=== PATIENT | male | born 1945 | race Caucasian/White ===

== ENCOUNTER 2016-12-23 02:32 | Day surgery (SDC) | payer OTHER ==
[~2016-12-23] VITALS: Ht 177.8 cm; Wt 73.0 kg
[~2016-12-23 02:32] MED LIST: ASPIR 8181 M1 PO; ASPIRIN325 MG PO; C 500 MG TIMED500 MG PO; CYANOCOBALAM1000 MCG PO; DAILY VALUE1 EACH PO; HYDROCHLOROTH12.5 M3 PO; LIPITOR80 MG PO; LOMOTIL TABLET1 EACH PO; METOCLOPRAMIDE10 MG PO; NAPROSYN500 MG PO; NEXIUM20 MG PO; NITROGLYCERIN0.4 MG SL; NITROSTAT0.4 MG SL; NORVASC5 MG PO; TOPROL XL50 MG PO; ZETIA10 MG PO
[2016-12-23 02:53] LABS: BASOPHIL COUNT 0.1 K/uL (0-0.1); EOSINOPHIL (%) 1.1 % (0-5); EOSINOPHIL COUNT 0.2 K/uL (0-0.3); HEMATOCRIT 37.5 % (38.0-50.0); IMMATURE GRANULOCYTE (%) 0.5 % (0.0-0.7); IMMATURE GRANULOCYTE COUNT 0.1 K/uL; LYMPHOCYTE COUNT 0.7 K/uL (1.0-2.8); MCH 33.8 PG (29.0-34.0); MCHC 35.5 G/DL (30.0-36.0); MCV 95.4 FL (86-99); MEAN PLAT.VOLUME 8.9 uM^3 (9.0-12.4); MONOCYTE (%) 4.8 % (3-12); MONOCYTE COUNT 0.7 K/uL (0-0.8); NEUTROPHIL (%) 88.5 % (45-76); PLATELET COUNT 246 K/uL (156-360); RBC DIS.WIDTH-CV 11.6 % (11.8-14.6); RBC DIS.WIDTH-SD 40.6 % (39-53); RED BLOOD COUNT 3.93 M/uL (4.00-5.50); WHITE BLOOD COUNT 14.7 K/uL (4.1-10.2)
[2016-12-23 03:04] LABS: CHLORIDE 98 mEq/L (99-109); POTASSIUM 3.6 mEq/L (3.7-5.4); SODIUM 130 mEq/L (136-147)
[2016-12-23 03:06] LABS: GLUCOSE 142 mg/dL (70-99)
[2016-12-23 03:08] LABS: ANION GAP 13 MEQ/L (2-14); TOTAL BILIRUBIN 0.7 mg/dL (0.0-1.0)
[2016-12-23 03:10] LABS: ALKALINE PHOSPHATASE 96 IU/L (3-129); GFR ESTIMATE (CALCULATED) > 59 mL/min/
[2016-12-23 03:11] LABS: UREA NITROGEN (BUN) 12 mg/dL (9-23)
[2016-12-23 03:13] LABS: LIPASE 36 U/L (1.0-51.0)
[2016-12-23 03:19] LABS: SERUM ETHYL ALCOHOL 33 mg/dL
[2016-12-23 04:12] LABS: ADD MIUA? NO; BILIRUBIN NEGATIVE; BLOOD NEGATIVE; COLOR STRAW ((YELLOW)); GLUCOSE (STRIP) 150; KETONES 5; LEUKOCYTES NEGATIVE; NITRITE NEGATIVE; PROTEIN (STRIP) NEGATIVE; SPECIFIC GRAVITY 1.011 (1.000-1.030); UCUL ADDED? NO; UROBILINOGEN 0.2 MG/DL (0.2-1.0)
[2016-12-23] MEDS ORDERED: PERCOCET 5/31 TABLET PO (09:25)
[2016-12-23] MEDS ORDERED: COLACE100 MG PO (09:25)
[2016-12-23 10:35] VITALS: BP 139/67
[2016-12-23 15:55] VITALS: BP 122/88
[2016-12-24 00:11] VITALS: BP 135/67
[2016-12-24 02:17] VITALS: BP 125/79
[2016-12-24 03:10] VITALS: BP 125/64
[2016-12-24 07:10] VITALS: BP 133/68
[2016-12-24 07:52] LABS: ANION GAP 8 MEQ/L (2-14); CHLORIDE 104 MEQ/L (99-109); GFR ESTIMATE (CALCULATED) > 59 mL/min/; GLUCOSE 89 mg/dL (70-99); POTASSIUM 4.1 MEQ/L (3.7-5.4); SAMPLE HEMOLYSIS CHECK 0; SAMPLE ICTERIC CHECK 0; SAMPLE LIPEMIA CHECK 0; SODIUM 136 MEQ/L (136-147); UREA NITROGEN (BUN) 10 mg/dL (9-23)
== END 2016-12-24 11:38 | disposition home or self-care (01) ==
LOC: EME 02:32 → SDC 07:43 → 2SOUTH 09:00 → ENRESERV 09:09 → 2EAST 10:38
PROVIDERS: Emergency Medicine; Surgery
PROC: 0DTJ4ZZ Resection of Appendix, Percutaneous Endoscopic Approach (ICD-10-PCS; principal; 2016-12-23)
DX: K35.80 Unspecified acute appendicitis (principal); I25.2 Old myocardial infarction; Z95.5 Presence of coronary angioplasty implant and graft; F17.200 Nicotine dependence, unspecified, uncomplicated; K29.70 Gastritis, unspecified, without bleeding; K57.30 Diverticulosis of large intestine without perforation or abscess without bleeding; K21.9 Gastro-esophageal reflux disease without esophagitis; E78.5 Hyperlipidemia, unspecified; Z85.46 Personal history of malignant neoplasm of prostate; Z79.82 Long term (current) use of aspirin; I10 Essential (primary) hypertension; I69.351 Hemiplegia and hemiparesis following cerebral infarction affecting right dominant side
CPT/HCPCS: 74177; 80048; 80053; 81003; 83605; 83690; 85025; 88304; 93005; 94640; 99281; 99285; G0378; G0480; J0131; J0330; J0690; J1580; J1650; J2250; J2405; J2710; J3010; J7030